=== PATIENT | male | born 1965 | race Caucasian/White ===

== ENCOUNTER 2022-06-15 07:34 | Outpatient (CLI) | payer SELFPAY ==
--- NOTE | 2022-06-15 08:00 | MR_ITS ---
WS: [id number] MRI HEAD WITH CONTRAST WITH ATTENTION TO THE INTERNAL AUDITORY CANALS TECHNIQUE: Sagittal T1, T2 axial, T2 axial flair, axial susceptibility weighted imaging, axial diffus ion weighted images, and coronal T2 images were obtained. Pre and post T1 axial and post T1 coronal i mages. ADC and FSPGR images. Post gadolinium images with attention to the internal auditory canals. A xial fiesta imaging. CLINICAL INFORMATION: SENSORINEURAL HEARING LOSS,BILATERAL COMPARISON: None. FINDINGS: No evidence of restricted diffusion to suggest acute ischemia. Ventricular system and basal cisterns are patent. Mild small vessel changes. No significant parenchymal volume loss. Normal posterior fossa . Normal vascular flow voids at the skull base. No extra axial fluid collections. No evidence of mass or mass effect. Mild mucosal thickening LEFT mastoid air cells. RIGHT mastoid air cells are well aer ated. Mild mucosal thickening in the ethmoid air cells. No hemosiderin on susceptibly weighted images. Normal optic chiasm and pituitary infundibulum. Normal cavernous sinuses and Meckel's cave. Proximal 7th and 8th cranial nerves are normal in appearance. N ormal trigeminal nerve root entry zones. No evidence of enhancing IAC or CP angle mass. MR/MR iac's wo/w con* [id number] IMPRESSION: 1. Proximal 7th and 8th cranial nerves are normal in appearance. No evidence o f enhancing IAC or CP angle mass. 2. Normal trigeminal nerve root entry zones. 3. Mild small vessel changes. No significant parenchymal volume loss. 4. Mild mucosal thickening LEFT mastoid air cells. RIGHT mastoid air cells wel l aerated. 5. No abnormal intercranial enhancement. 6. No other significant findings.
[2022-06-15] MEDS: gadobenate dimeglumine 5 mL vial IV (09:07)
== END 2022-06-15 07:35 | disposition home or self-care (01) ==
PROVIDERS: Visit Provider Specialist
DX: H90.3 Sensorineural hearing loss, bilateral (principal)
CPT/HCPCS: 70553

== ENCOUNTER → 2023-05-28 10:38 | Outpatient (BNVA) | payer SELFPAY | PROVIDERS: PCP Nurse Practitioner Family; Visit Provider Internal Medicine Rheumatology | DX: Z79.899 Other long term (current) drug therapy (principal); M19.90 Unspecified osteoarthritis, unspecified site; Z11.59 Encounter for screening for other viral diseases | CPT/HCPCS: 36415; 82306; 86038; 86200; 86431; 86480; 86704; 86803; 87340 ==

== ENCOUNTER 2025-09-13 10:31 | Emergency (ER) | payer SELFPAY ==
--- NOTE | 2025-09-13 10:35 | XRR_ITS ---
PROCEDURE INFORMATION: Exam: XR Right Knee Exam date and time: 09/13/2025 11:51 AM Age: 60 years old Clinical indication: Pain; Knee; Right; Additional info: RT knee pain; Unable to bear weight; PT states his knee popped out of place a couple of weeks ago, was sore for a few days, then improved. Today he got out of bed and isn't able to bear weight, states it feels like his joints are going to pop out of place. TECHNIQUE: Imaging protocol: Radiologic exam of the right knee. Views: 3 views. COMPARISON: No relevant prior studies available. FINDINGS: Bones/joints: Normal. Soft tissues: Normal. XR/XR knee RT 3V* [id number] IMPRESSION: No acute findings.
[2025-09-13 10:37] VITALS: BP 105/68; PULSE 86; RESP 18; TEMP 36.7; O2SAT 99
[2025-09-13] MEDS: HYDROcodone-acetaminophen 5-325 mg Tablet 1 TAB PO (11:52)
--- NOTE | 2025-09-13 12:02 | W.ED.EXTPRO ---
HPI - Extremity Problem General: Chief complaint: Extremity Injury, Lower Stated complaint: right knee pain Time Seen by Provider: 09/13/25 11:33 Source: patient Mode of arrival: ambulatory Limitations: no limitations History of Present Illness: 60-year-old male states that he had bent down 2 weeks ago and felt a pop in his knee he states that since then he has been having increasing pain in that knee. States its much worse when he tries to ambulate or move the knee is had some slight swelling. He denies any fevers denies any pain elsewhere Related Data Home Medications ?Medication ?Instructions ?Recorded ?Confirmed acetaminophen 300 mg-codeine 30 mg 1 tab PO Q6H PRN 05/28/23 05/28/23 tablet famotidine 20 mg tablet 20 mg PO DAILY 05/28/23 05/28/23 prednisone 10 mg tablet 10 mg PO DAILY 05/28/23 05/28/23 Previous Rx's ?Medication ?Instructions ?Recorded prednisone 20 mg tablet See Rx Instructions PO .COMPLEX 05/28/23 PRN joint pain flare #30 tabs leflunomide 20 mg tablet 20 mg PO DAILY #30 tabs 12/04/23 naproxen 500 mg tablet (Naprosyn) 500 mg PO BID PRN pain #20 tabs 09/13/25 Allergies Allergy/AdvReac Type Severity Reaction Status Date / Time No Known Allergies Allergy Unverified 05/28/23 09:52 Review of Systems Musc: Reports: extremity pain PFS ED PFSH: Medical History Immunization counseling High risk medication use Chronic steroid use Inflammatory arthritis GERD (gastroesophageal reflux disease) Joint pain Dry mouth History of hypercholesterolemia Surgical History (Updated 05/28/23 @ 15:33 by Darien Lira MD) Previous back surgery Family History (Updated 05/28/23 @ 09:57 by Donna Styles LPN) Other Hypertension Denies family history of Rheumatoid arthritis Diabetes Lupus Lung disease Cancer Stroke Social History Smoking and tobacco/nicotine status: current every day tobacco/nicotine user cigarettes Packs smoked per day: 2 Alcohol intake: current Alcohol intake frequency: 0-2 Drinks per Day Physical Exam Const: COMMON NORMALS: no acute distress, patient oriented x3 and healthy appearing HENMT: COMMON NORMALS: normocephalic and atraumatic HEAD & SCALP: normocephalic and atraumatic Neck/C-Spine: COMMON NORMALS: full ROM and supple Chest: COMMONS NORMALS: normal inspection of the chest Resp: COMMON NORMALS: normal respiratory effort Cardio: COMMON NORMALS: regular rate RATE: regular rate Extremity: NARRATIVE EXTREMITY EXAM: Slight swelling to right knee has pain with range of motion no warmth to touch distal pulses sensation intact Neuro: COMMON NORMALS: patient oriented x3, moves all extremities and no focal motor deficits Psych: COMMON NORMALS: mental status grossly normal, Normal thought process present and cooperative THOUGHT PROCESS: Normal thought process present Skin: COMMON NORMALS: no rashes or lesions noted and no wounds GENERAL SKIN EXAM: no rashes or lesions noted Course Vital Signs: Vital signs: Vital Signs Temperature 98.1 F 09/13/25 10:37 Pulse Rate 86 09/13/25 10:37 Respiratory Rate 18 09/13/25 10:37 Blood Pressure 105/68 09/13/25 10:37 Pulse Oximetry 99 09/13/25 10:37 Oxygen Delivery Me thod Room Air 09/13/25 10:37 MDM - Extremity (Nontraumatic) Medical Decision Making Patient presents with right knee pain going on for 2 weeks. Differential includes septic joint. He has no signs of septic joint here no warmth to touch he does have range of motion. Likely has a knee sprain x-ray shows no fractures did place him in knee immobilizer he is to weight-bear as tolerated we will get him crutches as well put an orthopedic referral he is to follow-up with orthopedics return if worsening he understands agrees to plan will prescribe him Naprosyn for home as well. Medical Records I reviewed the patient's medical records. XR interpretation done by ED provider, pending radiology final review ED provider radiology interpretation(s): xr r knee: no acute abnormality Discharge Plan Discharge Patient Disposition: Home Clinical Impression: Right knee sprain Qualifiers: Encounter type: initial encounter Involved ligament of knee: unspecified ligament Qualified Code(s): S83.91XA - Sprain of unspecified site of right knee, initial encounter Condition: Stable Prescriptions: New naproxen [Naprosyn] 500 mg tablet 500 mg PO BID PRN (Reason: pain) Qty: 20 0RF No Action famotidine 20 mg tablet 20 mg PO DAILY prednisone 10 mg tablet 10 mg PO DAILY acetaminophen-codeine 300-30 mg tablet 1 tab PO Q6H PRN prednisone 20 mg tablet See Rx Instructions PO .COMPLEX PRN (Reason: joint pain flare) Qty: 30 0RF Rx Instructions: take 2 tab daily for 5 days as needed for arthritis flare PO PRN; leflunomide 20 mg tablet 20 mg PO DAILY Qty: 30 0RF Discharge Orders: Discharge ED (Routine); Ordered 09/13/25 Ordered By: Yahaira Carrera Referrals: Aurora Mendoza MD [Physician, Orthopedics] - 4-7 days Rosalina Drew [Primary Care Provider, Family Practice] Discharge Diet: Advance as tolerated Discharge Activity: Limit activity as instructed and Use walker/crutches as instructed Patient Instructions: Knee Sprain (ED) Print Language: Estonian Coding Level of Care Code ED [place] Supervisor for Rashida Birch
--- NOTE | 2025-09-14 07:53 | DCPLANNER ---
messaged ortho for er f/u
== END 2025-09-13 12:36 | disposition home or self-care (01) ==
PROVIDERS: Emergency Provider Emergency Medicine; PCP Nurse Practitioner Family
DX: S83.91XA Sprain of unspecified site of right knee, initial encounter (principal); F17.210 Nicotine dependence, cigarettes, uncomplicated; X58.XXXA Exposure to other specified factors, initial encounter
CPT/HCPCS: 73562; 99283; J9999

== ENCOUNTER 2025-09-19 05:00 | Outpatient (CLI) | payer SELFPAY | END 2025-09-19 05:01 | disposition home or self-care (01) | LOC: SPT 09-29 16:25 | PROVIDERS: PCP Nurse Practitioner Family; Visit Provider Nurse Practitioner | DX: Z46.89 Encounter for fitting and adjustment of other specified devices (principal); M25.361 Other instability, right knee | CPT/HCPCS: L1812 ==

== ENCOUNTER → 2025-09-21 14:21 | Outpatient (BNVA) | payer SELFPAY | PROVIDERS: PCP Nurse Practitioner Family; Visit Provider Nurse Practitioner | DX: M25.561 Pain in right knee (principal); M25.361 Other instability, right knee | CPT/HCPCS: 73562 ==

== ENCOUNTER 2025-09-22 14:52 | Outpatient (CLI) | payer SELFPAY ==
--- NOTE | 2025-09-22 15:15 | MR_ITS ---
WS: [id number] MRI RIGHT KNEE HISTORY: right knee pain, painful pop and instability. COMPARISON: Radiographs 09/21/2025 Anterior cruciate ligament: Intact. Posterior cruciate ligament: Intact. Medial collateral ligament: Intrasubstance tear of the MCL. Meniscal femoral component is also torn with increased signal centrally. Posterior lateral corner structures: Intact. Medial menisci: Partial extrusion of the meniscus from the joint line. Intermediate signal extends to the intra-articular surface of the posterior horn consistent with a horizontal tear. Seen best on the coronal images is a possible radial tear in the posterior horn. Radial tear cannot be confirmed as it is only seen on one image. Lateral meniscus: Intact. Normal signal, size and shape. Extensor mechanism: Distal quadriceps tendon and patellar tendons are intact. Fluid and soft tissue: Moderate-sized suprapatellar joint effusion. No Dominguez's cyst. Soft tissue edema along the posterior lateral knee extends along the lateral head of the gastrocnemius. Osseous and articular structures: Patellofemoral compartment: Moderate narrowing the patellofemoral joint space. Mild chondromalacia. Small amount of marrow edema along the medial patellar facet. Medial compartment: Moderate narrowing of the medial compartment. Diffuse chondromalacia. Tiny amount of marrow edema in the medial tibial plateau closest to the MCL. Lateral compartment: Moderate narrowing of the lateral compartment. Diffuse chondromalacia. No marrow edema or fracture. MR/MR knee RT wo con* [id number] IMPRESSION: 1. No ACL tear. 2. Intrasubstance tear at the superficial MCL. Additional partial tear at the meniscal femoral component of the MCL. 3. Partial extrusion of the medial meniscus from the joint line. 4. Horizontal tear posterior horn medial meniscus extends to the intra-articul ar surface. Possible radial tear also in the posterior horn. Radial tear cannot be confirmed as it is only seen on the coronal sequence in one image. 5. Moderate-sized suprapatellar joint effusion. 6. Soft tissue edema along the posterior lateral knee. 7. Moderate narrowing of the patellofemoral, medial and lateral compartments w ith chondromalacia.
== END 2025-09-22 14:53 | disposition home or self-care (01) ==
LOC: RAD 14:54
PROVIDERS: PCP Nurse Practitioner Family; Visit Provider Nurse Practitioner
DX: S83.411A Sprain of medial collateral ligament of right knee, initial encounter (principal); M25.361 Other instability, right knee; X58.XXXA Exposure to other specified factors, initial encounter; R93.6 Abnormal findings on diagnostic imaging of limbs; M25.461 Effusion, right knee; R60.0 Localized edema; M94.261 Chondromalacia, right knee
CPT/HCPCS: 73721